=== PATIENT | male | born 1985 | race Caucasian/White ===

== ENCOUNTER 2017-09-26 20:22 | Emergency (ER) | payer MEDICAID ==
[2017-09-26] MEDS ORDERED: ASPIRIN 81 MG CHEWABLE TAB PO ONE (20:40)
--- NOTE | 2017-09-26 20:42 | EDPHY ---
H & P Stated Complaint: CP, near syncope, fatigue x 5 days. - Personal History Current Tetanus/Diphtheria Vaccine: No Current Tetanus Diphtheria and Acellular Pertussis (TDAP): No - Medical/Surgical History Hx Asthma: No Hx Chronic Respiratory Disease: No Hx Diabetes: No Hx Cardiac Disease: No Hx Renal Disease: No Hx Cirrhosis: No Hx Alcoholism: No Hx HIV/AIDS: No Hx Splenectomy or Spleen Trauma: No Other PMH: R total shoulder. C-spine injury - Social History Smoking Status: Never smoked Time Seen by Provider: 09/26/17 20:35 HPI/ROS: CHIEF COMPLAINT: Chest pain, dyspnea x5 days HISTORY OF PRESENT ILLNESS: 32-year-old male generally healthy, nonsmoker, no illicit drug use, no cocaine use, complaining of 5 days of left-sided chest pain with dyspnea, lightheadedness, near-syncope. Unable to reproduce symptoms with movement or with breathing. Left-sided chest pain described as constant. No trauma or fall. REVIEW OF SYSTEMS: A ten point review of systems was performed and is negative with the exception of the items mentioned in the HPI PAST MEDICAL & SURGICAL HISTORY: No pertinent medical or surgical history SOCIAL HISTORY:Nonsmoker. No illicit drug use. No cocaine use . No IV drug use history. FAMILY HISTORY: No family history of premature coronary artery disease, coagulopathic disorder, sudden unexplained PHYSICAL EXAM (Prior to examination, patient consented to physical exam, hands were washed and my usual and customary physical exam procedures followed) 1) GENERAL: Well-developed, well-nourished, alert and oriented. Appears to be in no acute distress. 2) HEAD: Normocephalic, atraumatic 3) HEENT: Pupils equal, round, reactive to light bilaterally. Sclera anicteric. Nasopharynx, oropharynx, clear, no lesions. Ears bilaterally with normal tympanic membranes. 4) NECK: Full range of motion, no meningeal signs. 5) LUNGS: Clear auscultation bilaterally, no wheezes, no rhonchi, no retractions. Chest wall nontender. 6) HEART: Regular rate and rhythm, no murmur, no heave, no gallop. 7) ABDOMEN: No guarding, no rebound, no focal tenderness, negative McBurney's, negative Allen's, negative Rovsing's, negative peritoneal sign, 8) MUSCULOSKELETAL: Moving all extremities, no focal areas of tenderness, no obvious trauma. No peripheral edema or discoloration. 9) BACK: No CVA tenderness, no midline vertebral tenderness, no fluctuance, no step-off, no obvious trauma, no visual or palpable abnormality. 10) SKIN: No rash, no petechiae. 11) Psychiatric: Patient is oriented X 3, there is no agitation. DIFFERENTIAL DIAGNOSIS: In no particular order, including but not limited to myocardial ischemia, pulmonary embolus, chest wall pain, pleural inflammation and pulmonary infectious causes. (Rivera Matthews) Constitutional: Initial Vital Signs Temperature (C) 36.7 C 09/26/17 20:28 Heart Rate 74 09/26/17 20:28 Respiratory Rate 16 09/26/17 20:28 Blood Pressure 115/73 09/26/17 20:28 O2 Sat (%) 93 09/26/17 20:28 O2 Delivery Mode Room Air Allergies/Adverse Reactions: Penicillins Allergy (Verified 09/26/17 20:33) Home Medications: Medication Instructions Recorded Colchicine 0.6 mg PO DAILY #30 tablet 09/26/17 Medical Decision Making - Diagnostics EKG Interpretation: EKG interpreted by me reveals sinus rhythm, rate 54, diffuse ST segment elevation, consistent with pericarditis. Interpretation: Abnormal EKG (Yoon Matthew) ED Course/Re-evaluation: This patient was seen and examined by me. Onset of sharp and stabbing left- sided chest pain today. The chest pain increases with torso movement. Onset of palpitations 4 days ago, intermittent since then. No recent viral illness. EKG reveals sinus rhythm, rate 54, diffuse ST segment elevation, consistent with pericarditis. Clinical presentation is consistent with pericarditis. Ibuprofen instructions given and colchicine prescription written. Will follow up with Cardiology. (Yoon Matthew) 8:53 p.m.: Care of patient under supervision of secondary supervising physician Dr Matthew with whom I discussed case and reviewed the EKG. 10:20 p.m.: Re-evaluation, he is now complaining of right scapular and right neck pain. Discussed his normal laboratory results. Will obtain repeat EKG. ( Rivera Matthews) Differential Diagnosis: Differential diagnosis includes though it is not limited to pneumonia, pneumothorax, pulmonary embolism, aortic dissection, pericarditis, acute coronary syndrome. (Yoon Matthew) - Data Points Laboratory Results: Laboratory Results 09/26/17 20:58 09/26/17 20:58 Medications Given: Discontinued Medications Aspirin (Aspirin) 324 mg PO EDNOW ONE Stop: 09/26/17 20:41 Last Admin: 09/26/17 21:11 Dose: 324 mg Colchicine (Colchicine) 0.6 mg PO EDNOW ONE Stop: 09/26/17 22:56 Last Admin: 09/26/17 23:13 Dose: 0.6 mg Ketorolac Tromethamine (Toradol) 15 mg IVP EDNOW ONE Stop: 09/26/17 22:01 Last Admin: 09/26/17 22:11 Dose: 15 mg Morphine Sulfate (Morphine) 4 mg IVP EDNOW ONE Stop: 09/26/17 20:41 Last Admin: 09/26/17 21:11 Dose: 4 mg Morphine Sulfate (Morphine) 4 mg IVP EDNOW ONE Stop: 09/26/17 22:28 Last Admin: 09/26/17 23:14 Dose: Not Given Departure - Departure Disposition: Home, Routine, Self-Care Clinical Impression: Pericarditis Condition: Good Instructions: Acute Pericarditis (ED) Additional Instructions: Ibuprofen 600 mg 3 times daily for pericarditis. Referrals: River Jones MD [Medical Doctor] - As per Instructions (Call to make an appointment) Prescriptions: Colchicine 0.6 mg PO DAILY #30 tablet
--- NOTE | 2017-09-26 20:50 | CPEKG ---
Heart Rate: 72 RR Interval: 833 P-R Interval: 180 QRSD Interval: 78 QT Interval: 372 QTC Interval: 408 P Fisher: 64 QRS Fisher: 78 T Wave Fisher: 55 EKG Severity - ABNORMAL ECG - EKG Impression: SINUS RHYTHM EKG Impression: ST segment elevation consistent with pericarditis Electronically Signed By: Yoon Matthew 26-Sep-2017 23:04:37
[2017-09-26 21:13] LABS: PLATELET COUNT 260 10^3/uL (150-400)
[2017-09-26] MEDS ORDERED: KETOROLAC 15 MG/1 ML SDV IVP ONE (22:00)
--- NOTE | 2017-09-26 22:36 | CPEKG ---
Heart Rate: 54 RR Interval: 1111 P-R Interval: 196 QRSD Interval: 84 QT Interval: 412 QTC Interval: 391 P [place]: 57 QRS [place]: 75 T Wave [place]: 47 EKG Severity - ABNORMAL ECG - EKG Impression: SINUS RHYTHM EKG Impression: ST ELEVATION SUGGESTS PERICARDITIS Electronically Signed By: Yoon Matthew 26-Sep-2017 23:03:52
[2017-09-26] MEDS ORDERED: COLCHICINE 0.6 MG CAP/TAB PO ONE (22:55)
[2017-09-26 23:23] VITALS: BP 112/65
== END 2017-09-26 23:21 | disposition home or self-care (01) ==
DX: I30.9 Acute pericarditis, unspecified (principal)
CPT/HCPCS: 96374; J1885; J2270